=== PATIENT | female | born 1945 | race Caucasian/White ===

== ENCOUNTER 2018-01-18 13:27 | Emergency (ER) | payer MEDICARE, BC, SELFPAY ==
[2018-01-18 13:27] VITALS: BP 159/72; PULSE 84; RESP 16; TEMP 36.5; O2SAT 97; BMI 26.7
--- NOTE | 2018-01-18 13:39 | ED.VISSUMM ---
- ER Visit Summary Date of Service: 01/18/18 Chief Complaint: Right hand and wrist pain History of Present Illness: The patient is a 72 F who has right hand and wrist pain. She slipped on ice and fell yesterday. She landed directly on her right hand. She has pain over the diffuse hand and wrist. Worse with movement. She tried arthritis pills without any relief. No previous injuries or surgeries. Physical Examination: Vital signs reviewed. Right hand exam reveals tenderness diffusely. She has ecchymosis over the lateral part of the right hand. Painful range of motion of the hand and wrist. She has good capillary refill. 2+ radial pulse noted. Test Results: X-rays of the right hand reveal no acute findings. X-rays of the right wrist reveals a distal radius fracture with intra-articular extension Emergency Department Course and Treatment: Patient was placed in an AP splint. She will be given orthopedic follow-up. [place] for home Treatment Plan: [] Disposition: Discharge Impression: Right distal radius fracture, closed This note was generated with [employer] dictation software. It may contain incorrect words, spelling, and punctuation that were not noted in review of the chart prior to signing ED Disposition - Plan for ED Patient: Chief Complaint: Upper Extremity Injury Referrals: Marlene Drummond DO [Primary Care Provider] -
--- NOTE | 2018-01-18 13:55 | RAD_ITS ---
STUDY: X-RAY - RIGHT HAND REASON FOR EXAM: Female, 72 years old. Hand pain after fall TECHNIQUE: 3 view(s) of the hand. COMPARISON: None. FINDINGS: Age-related degenerative changes. No evidence of fracture of the hand. No significant soft tissue swelling. Mild diffuse demineralization. Partially visualized distal radius fracture. RAD/Hand Min 3 Views IMPRESSION: As above Electronically Signed: Cal Buenrostro DO at 15:43 EST Tel , Service support ,
--- NOTE | 2018-01-18 13:55 | RAD_ITS ---
STUDY: X-RAY - RIGHT WRIST REASON FOR EXAM: Female, 72 years old. Right wrist pain after fall TECHNIQUE: 3 view(s) of the wrist were obtained. COMPARISON: None. FINDINGS: Mildly comminuted and nondisplaced fracture of the distal radius with some impaction. Intra-articular extension is noted. Otherwise, mild degenerative changes. Soft tissue swelling is noted. RAD/Wrist min 3 Views IMPRESSION: Distal radius fracture Electronically Signed: Cal Buenrostro DO at 15:42 EST Tel , Service support ,
--- NOTE | 2018-01-18 15:56 | DCINST.ED_ITS ---
ED Disposition - Plan for ED Patient: Disposition: Home or Assisted Living Chief Complaint: Upper Extremity Injury Instructions: ED Fx Wrist General Prescriptions: Hydrocodone Bitart/Apap 5-325 [[place] 5MG-325MG] 1 tab PO Q6H PRN PRN 3 Days #10 tab PRN Reason: Pain Referrals: Marlene Drummond DO [Primary Care Provider] - Kacey Conde DO [STAFF PHYSICIAN] -
[2018-01-18 16:02] VITALS: BP 135/67; PULSE 71; RESP 16; O2SAT 96
== END 2018-01-18 16:02 | disposition home or self-care (01) ==
PROVIDERS: Emergency Provider Emergency Medicine; Family Provider Family Medicine; PCP Family Medicine
DX: S52.571A Other intraarticular fracture of lower end of right radius, initial encounter for closed fracture (principal); W00.0XXA Fall on same level due to ice and snow, initial encounter; Y93.9 Activity, unspecified; Y92.9 Unspecified place or not applicable; G35 Multiple sclerosis; Z79.899 Other long term (current) drug therapy
CPT/HCPCS: 29125; 73110; 73130; 99282

== ENCOUNTER → 2018-01-27 14:02 | Outpatient (CLI) | payer MEDICARE, BC, SELFPAY ==
[2018-01-27 13:54] VITALS: BMI 26.7
--- NOTE | 2018-01-27 14:17 | RAD_ITS ---
STUDY: X-RAY - RIGHT WRIST REASON FOR EXAM: Pain. TECHNIQUE: 3 view(s) of the wrist were obtained. COMPARISON: Radiographs 01/18/2018. FINDINGS: There is a mildly impacted fracture of the distal radius without interval change. Normal radiocarpal articulation. Normal distal radioulnar articulation. Normal carpal bones. Normal carpal articulations. Normal carpometacarpal articulation of the thumb. Normal second through fifth carpometacarpal articulations. Normal visualized metacarpal bones. There is an overlying cast. RAD/Wrist min 3 Views IMPRESSION: No interval change of distal radial fracture. Electronically Signed: Sony Rai MD at 15:50 EST Tel , Service support ,
--- OUTSIDE RECORDS SUMMARY | 2018-05-01 01:37 | XMS RPT_ITS ---
:1945 Author Organization OHIP Care Team Providers Name Role Phone Kacey Conde Attending Unavailable Malys, Marlene Referring Unavailable Kacey Conde Attending Unavailable Kacey Conde Referring Unavailable Malys, Marlene Primary Care Unavailable Kacey Conde Attending Unavailable Modestoys, Marlene Referring Unavailable Kacey Conde Attending Unavailable Kacey Conde Primary Care Unavailable Kacey Conde Attending Unavailable Kacey Conde Attending Unavailable Kacey Conde Referring Unavailable Chicarmand, Kacey Primary Care Unavailable Malys, Marlene Primary Care Unavailable Chino Meraz Attending Unavailable PROBLEMS PROBLEMS DATE TYPE CONDITION / CODE ATTENDING STATUS SOURCE 02/13/2018 Unknown S62.101A - Chicarmand, Active [place] Fracture of [facility] unspecified Hospital carpal bone, Repository right wrist, initial encounter for closed fracture / S62.101A(ICD-10) 02/13/2018 Unknown S52.509A - Chicorelli, Active [place] Unspecified [facility] fracture of the Hospital lower end of Repository unspecified radius, initial encounter for closed fracture / S52.509A(ICD-10) 01/27/2018 Unknown M25.539 - Pain in [place], Active [place] unspecified wrist [facility] / M25.539(ICD-10) Hospital Repository 01/18/2018 Unknown S52.501A - Chino Meraz Active [place] Unspecified [facility] fracture of the Hospital lower end of Repository right radius, initial encounter for closed fracture / S52.501A(ICD-10) PROCEDURES PROCEDURES No Procedure Records FoundRESULTS RESULTS ORTHOPEDIC VISIT Observed: 02/13/2018 Status: F Source: [place] REPORT 11:[address] [facility] REPOSITORY [facility] Orthopaedics AND Sports Medicine [address] [place] [address] OFFICE VISIT Date of Service: 02/13/18 MR#: [id number] Acct: [id number] Name: AUBREY MAN Rep #: [id number] : 1945 Provider: Kacey Conde DO Age/Sex: 72/F Location: [facility] [place].SMO Status: Signed Intake Vital Signs02/13/18 Body Mass Index (BMI) 26.7 Intake Visit Reasons: RIGHT WRIST Is patient in pain?: No Allergies ciprofloxacin [From Cipro] Allergy (Verified 02/13/18 09:19) Other erythromycin base Allergy (Verified 02/13/18 09:19) Other Medications Fluoxetine [Prozac] 01/18/18 [History] Glipizide [Glipizide ER] 01/18/18 [History] Qnapril/Hctz 20 - 25 mg PO DAILY 01/18/18 [History] Solifenacin Succinate [Vesicare] 01/18/18 [History] PFSH Social History Smoking Status: Never smoker HPI RIGHT WRIST: Details: AUBREY MAN is a 72 year old F here today for a followup on her right wrist fracture. Patient states that she is doing well and not having any pain. Her short arm cast is clean, dry and intact. She is able to move her fingers with no pain. Denies numbness, tingling or other associated symptoms. ROS Const Reports system reviewed and no additional complaints, except as docu Eyes Reports system reviewed and no additional complaints, except as docu ENT Reports system reviewed and no additional complaints, except as docu Card Reports system reviewed and no additional complaints, except as docu Resp Reports system reviewed and no additional complaints, except as docu GI Reports system reviewed and no additional complaints, except as docu Reports system reviewed and no additional complaints, except as docu Skin/Breast Reports system reviewed and no additional complaints, except as docu Neuro Yes system reviewed and no additional complaints, except as docu Psych Reports system reviewed and no additional complaints, except as docu Endo Reports system reviewed and no additional complaints, except as docu Ortho Exam Right Wrist/Hand WRIST: No skin breakdown around cast able to range of motion of her fingers with limited pain and no sensory or neurovascular deficits. Assessment AND Plan Plan X-rays reviewed of her wrist show adequate alignment. She did follow-up and again dorsally at the last visit but that has maintained stabilization has not worsened. Maintain cast for another 3 weeks and then remove the cast and get x-rays and at that point if she is not completely healed convert her to a splint that she can remove and work on range of motion exercises. She should also start occupational therapy in 3 weeks to ensure that she does not get super stiff. All questions answered. Patient in agreement of plan. Follow up in 3 weeks with mukund or sooner if pain, swelling, numbness or associated symptoms, or concerns develop. This note was generated with Fiestah dictation software. It may contain incorrect words, spelling, and punctuation that were not noted in checking the note before signing. Orders Orders: Coding Level of Care Code Off vis,est,level 3 02/13/18 1118 <Electronically signed by Kacey Conde DO> Date Kacey Goodmanignmarty Signature: Date (if applicable) CC: WRIST MIN 3 VIEWS Observed: 02/13/2018 Status: F Source: [place] 9:21 AM [facility] REPOSITORY [facility] Imaging Services [address] [place] [address] Wrist min 3 Views MR#: [id number] Acct: [id number] Name: AUBREY MAN Rep #: [id number] : 1945 F 72 From: Teo Alvarez MD PCP: Marlene Drummond DO Status: REG CLI Study: Wrist min 3 Views Date of Exam: 02/13/18 Exam# [id number] Ordering Dr: Kacey Conde DO STUDY: X-RAY - RIGHT WRIST REASON FOR EXAM: Female, 72 years old. Distal radial fracture follow-up TECHNIQUE: 3 view(s) of the wrist were obtained. COMPARISON: 02/05/2018 FINDINGS: Comminuted fracture of the distal radius is stable when compared to prior study. No change in alignment. Ulnar styloid fracture is not well documented on current exam. Normal radiocarpal articulation. Similar mild widening of the distal radioulnar articulation. Normal carpal bones. Normal carpal articulations. There is degenerative arthrosis of the carpometacarpal articulation of the thumb. Normal second through fifth carpometacarpal articulations. Normal visualized metacarpal bones. Cast material obscures the underlying bony detail. RAD/Wrist min 3 Views IMPRESSION: Stable distal radial fracture. Electronically Signed: Teo Alvarez MD at 7:19 EST , Service support , CC: Kacey Conde DO; Marlene Drummond DO Heel Packer: Signed ORTHOPEDIC VISIT Observed: 02/06/2018 Status: F Source: [place] REPORT 9:[address] [facility] REPOSITORY [facility] Medicine [address] [place] [address] OFFICE VISIT Date of Service: 01/27/18 MR#: [id number] Acct: [id number] Name: AUBREY MAN Rep #: [id number] : 1945 Provider: Kacey Conde DO Age/Sex: 72/F Location: [facility] [place].[facility] Status: Signed Intake Vital Signs01/27/18 Body Mass Index (BMI) 26.7 01/27/18 Height 5 ft 1 in 01/27/18 Weight: 137 lb 01/27/18 Body Mass Index (BMI) 25.9 Intake Visit Reasons: RIGHT WRIST Is patient in pain?: Yes Pain Scale - Faces (1-5): 7 Allergies ciprofloxacin [From Cipro] Allergy (Verified 01/18/18 13:29) Other erythromycin base Allergy (Verified 01/18/18 13:29) Other Medications Fluoxetine [Prozac] 01/18/18 [History] Glipizide [Glipizide ER] 01/18/18 [History] Qnapril/Hctz 20 - 25 mg PO DAILY 01/18/18 [History] Solifenacin Succinate [Vesicare] 01/18/18 [History] PFSH Social History Smoking Status: Never smoker HPI RIGHT WRIST: Details: AUBREY MAN is a 72 year old F here today for ED F/u on rt wrist fx. Pt fell on ice on 01/17 on 01/18 pt woke up with increased pain and mentions hand was black and blue , swollen. Pt has not been taking any pain medication has been using shoulder sling from .Pt reports pain in wrist that is radiating up arm. Denies numbness, tingling or other associated symptoms. no head trauma, loc, or other issues today. ROS Const Denies system reviewed and no additional complaints, except as docu, Denies anorexia, Denies body aches, Denies chills, Denies daytime sleepiness, Denies difficulty sleeping, Denies excessive sweating, Denies fatigue, Denies fever(s), Denies frequent falls, Denies headache(s), Denies increased appetite, Denies poor appetite, Denies lack of energy, Denies malaise, Denies night sweats, Denies snoring, Denies stops breathing during sleep, Denies weakness, Denies weight gain, Denies weight loss, Denies other, Reports as per HPI ENT Denies headache(s) Resp Denies snoring Musc Reports joint swelling, Reports joint pain, Reports as per HPI, Reports radiating pain into limb Neuro No frequent falls, No headache(s), No weakness Endo Denies excessive sweating, Denies fatigue Ortho Exam Right Wrist/Hand Contralateral Normal: Yes Motor: EPL: 5, FDP-2: 5, 1st Dorsal Interosseous: 5, APB: 5 Sensation: Radial: I, Ulnar: I, Median: I WRIST: ttp at fracture site from fingers with pain Left Wrist/Hand Left Wrist: Yes TTP Fracture site Motor: EPL: 5, FDP-2: 5, 1st Dorsal Interosseous: 5, APB: 5 Sensation: Radial: I, Ulnar: I, Median: I Assessment AND Plan Problems 1. Distal radius fracture S52.509A Plan Patient has a partially displaced right distal radius fracture. Today we closed reduced and casted her and put a short arm cast repeat x-rays show better alignment. This point we will treat her conservatively as patient is not interested in any type of surgical intervention. We will watch her closely to discuss the fact that it may shorten or she may lose range of motion etc. family and patient is aware cast for 6 weeks repeat x- rays for the next 2 and most likely transition into a splint of some sort. She is neuro intact she is tender to site but having no other symptoms and no carpal tunnel symptoms. All questions answered. Patient in agreement of plan.Follow up in 1 week with repeat xrays or sooner if pain, swelling, numbness or associated symptoms, or concerns develop. Medications Discontinued: hydrocodone-acetaminophen 5-325 mg take 1 1 tab PO Q6H 5 days PRN 30 tabs 0RF pain R52 tab by mouth every 6 hours as needed for pain , stop all tylenol and narcs Discontinued Reason: By Stop Date Coding Level of Care Code Off vis,new,level 3 Diagnoses Distal radius fracture S52.509A 02/06/18 0905 <Electronically signed by Kacey Conde DO> Date Kacey Conde DO Alonign Signature: Date (if applicable) CC: ORTHOPEDIC VISIT Observed: 02/05/2018 Status: F Source: [place] REPORT 1:[address] [facility] REPOSITORY [facility] [address] [place] [address] OFFICE VISIT Date of Service: 02/05/18 MR#: [id number] Acct: [id number] Name: AUBREY MAN Rep #: [id number] : 1945 Provider: Kacey Conde DO Age/Sex: 72/F Location: [facility] [place] [place]: Signed Intake Vital Signs02/05/18 Body Mass Index (BMI) 26.7 Intake Visit Reasons: RIGHT WRIST Is patient in pain?: Yes Pain scale (1-10): 5 Allergies ciprofloxacin [From Cipro] Allergy (Verified 01/18/18 13:29) Other erythromycin base Allergy (Verified 01/18/18 13:29) Other Medications Fluoxetine [Prozac] 01/18/18 [History] Glipizide [Glipizide ER] 01/18/18 [History] Qnapril/Hctz 20 - 25 mg PO DAILY 01/18/18 [History] Solifenacin Succinate [Vesicare] 01/18/18 [History] PFSH Social History Smoking Status: Never smoker HPI RIGHT WRIST: Details: AUBREY MAN is a 72 year old F here today for f/u on right wrist fracture. Her cast is in clean dry good condition with no skin irritations. She has discomfort with finger rom and sup/pro and she continues to use the pain medication. She swelling is improved in her fingers. Denies numbness, tingling or other associated symptoms. Ortho Exam Right Wrist/Hand Motor: EPL: 5, FDP-2: 5, 1st Dorsal Interosseous: 5, APB: 5 Sensation: Radial: I, Ulnar: I, Median: I WRIST: No skin breakdown around cast Assessment AND Plan Plan X-rays of right wrist show adequate alignment no major shortening or dorsal angulation at this time. We will continue to monitor her weekly to ensure that she feels this is a good short and does not need any intervention. We will get repeat x-rays in 1 week. Again told to remain nonweightbearing right upper extremity call if there is any issues continue to keep cast clean and dry there is any skin irritation we can address that but there appears to be none at this time. All questions answered. Patient in agreement of plan.Follow up in one week or sooner if pain, swelling, numbness or associated symptoms, or concerns develop. Orders Orders: Coding Level of Care Code Off vis,est,level 3 02/05/18 1346 <Electronically signed by Kacey Conde DO> Date Kacey Conde DO Cosigner Signature: Date (if applicable) CC: WRIST MIN 3 VIEWS Observed: 02/05/2018 Status: F Source: [place] 12:[address] [facility] REPOSITORY [facility] Imaging Services [address] [place] [address] Wrist min 3 Views MR#: [id number] Acct: [id number] Name: AUBREY MAN Rep #: [id number] : 1945 F 72 From: Jose Messina MD PCP: Marlene Drummond DO Status: REG CLI Study: Wrist min 3 Views Date of Exam: 02/05/18 Exam# [id number] Ordering Dr: Kacey Conde DO STUDY: X-RAY - RIGHT WRIST REASON FOR EXAM: Female, 72 years old. Follow-up of fracture. TECHNIQUE: 3 view(s) of the wrist through casting material were obtained. COMPARISON: January 27, 2018 FINDINGS: There is a comminuted impacted distal radial fracture showing no change in position or alignment. There is a stable ulnar styloid tip fracture. Normal radiocarpal articulation. Normal distal radioulnar articulation. Normal carpal bones. 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 There is cystic changes of the carpal bones. The soft tissue structures are unremarkable. RAD/Wrist min 3 Views IMPRESSION: Stable distal radial and ulnar styloid tip fractures with no complications. Electronically Signed: Jose Messina MD at 17:16 EST , Service support , CC: Kacey Conde DO; Marlene Drummond DO Heel Packer: Signed WRIST MIN 3 VIEWS Observed: 01/27/2018 Status: F Source: [place] 2:[address] [facility] REPOSITORY [facility] Imaging Services [address] [place] [address] Wrist min 3 Views MR#: [id number] Acct: [id number] Name: AUBREY MAN Rep #: [id number] : 1945 F 72 From: Sony Rai MD PCP: Marlene Drummond DO Status: REG CLI Study: Wrist min 3 Views Date of Exam: 01/27/18 Exam# [id number] Ordering Dr: Kacey Conde DO STUDY: X-RAY - RIGHT WRIST REASON FOR EXAM: Pain. TECHNIQUE: 3 view(s) of the wrist were obtained. COMPARISON: Radiographs 01/18/2018. FINDINGS: There is a mildly impacted fracture of the distal radius without interval change. Normal radiocarpal articulation. Normal distal radioulnar articulation. Normal carpal bones. Normal carpal articulations. Normal carpometacarpal articulation of the thumb. Normal second through fifth carpometacarpal articulations. Normal visualized metacarpal bones. There is an overlying cast. RAD/Wrist min 3 Views IMPRESSION: No interval change of distal radial fracture. Electronically Signed: Sony Rai MD at 15:50 EST Tel , Service support , CC: Kacey Conde DO; Marlene Drummond DO Heel Packer: Signed EMERGENCY DEPARTMENT Observed: 01/23/2018 Status: F Source: [place] SUMMARY 11:[address] [facility] REPOSITORY [facility] Medical Records Department [address] [place] [address] Emergency Department Summary 01/18/18 1339 MR#: [id number] Acct: [id number] Name: AUBREY MAN Rep #: [id number] : 1945 72 From: Chino Meraz MD PCP: Marlene Drummond DO Status: DEP ER ADDENDUM by Chino Meraz MD on 01/23/18 at 1147 AP splint was fabricated 01/23/18 1147 Date Chino Meraz MD cc: Marlene Drummond DO * Signed - ER Visit Summary Date of Service: 01/18/18 Chief Complaint: Right hand and wrist pain History of Present Illness: The patient is a 72 F who has right hand and wrist pain. She slipped on ice and fell yesterday. She landed directly on her right hand. She has pain over the diffuse hand and wrist. Worse with movement. She tried arthritis pills without any relief. No previous injuries or surgeries. Physical Examination: Vital signs reviewed. Right hand exam reveals tenderness diffusely. She has ecchymosis over the lateral part of the right hand. Painful range of motion of the hand and wrist. She has good capillary refill. 2+ radial pulse noted. Test Results: X-rays of the right hand reveal no acute findings. X-rays of the right wrist reveals a distal radius fracture with intra-articular extension Emergency Department Course and Treatment: Patient was placed in an AP splint. She will be given orthopedic follow-up. [place] for home Treatment Plan: [] Disposition: Discharge Impression: Right distal radius fracture, closed This note was generated with MarketMeSuiteation software. It may contain incorrect words, spelling, and punctuation that were not noted in review of the chart prior to signing ED Disposition - Plan for ED Patient: Chief Complaint: Upper Extremity Injury Referrals: Marlene Drummond DO [Primary Care Provider] - What to do if you have Problems For any increased pain, shortness of breath, bleeding, nausea or vomiting, chest pain, or any unexpected problems, contact your Primary Care Provider. Call [facility] ([phone]) or report to the closest Emergency Room. Call 911 if necessary. 01/18/18 1555 <Electronically signed by Chino Meraz MD> Date Chino Merza MD Cosigner Signature (If Indicated): Date CC: Marlene Drummond DO DISCHARGE INSTRUCTION Observed: 01/18/2018 Status: F Source: [place] 3:[address] [facility] REPOSITORY [facility] Medical Records Department [address] [place] [address] Discharge Instruction 01/18/18 1555 MR#: [id number] Acct: [id number] Name: AUBREY MAN Rep #: [id number] : 1945 72 From: Chino Meraz MD PCP: Marlene Drummond DO Status: REG ER ED Disposition - Plan for ED Patient: Disposition: Home or Assisted Living Chief Complaint: Upper Extremity Injury Instructions: ED Fx Wrist General Prescriptions: Hydrocodone Bitart/Apap 5-325 [[place] 5MG-325MG] 1 tab PO Q6H PRN PRN 3 Days #10 tab PRN Reason: Pain Referrals: Marlene Drummond DO [Primary Care Provider] - Kacey Conde DO [STAFF PHYSICIAN] - What to do if you have Problems For any increased pain, shortness of breath, bleeding, nausea or vomiting, chest pain, or any unexpected problems, contact your Primary Care Provider. Call [facility] ([phone]) or report to the closest Emergency Room. Call 911 if necessary. 01/18/18 3807 <Electronically signed by Chino Meraz MD> Date Chino Meraz MD Cosigner Signature (If Indicated): Date CC: Marlene Drummond DO WRIST MIN 3 VIEWS Observed: 01/18/2018 Status: F Source: [place] 1:[address] [facility] REPOSITORY [facility] Imaging Services [address] [place] [address] Wrist min 3 Views MR#: [id number] Acct: [id number] Name: AUBREY MAN Rep #: [id number] : 1945 F 72 From: Cal Buenrostro DO PCP: Marlene Drummond DO Status: REG ER Study: Wrist min 3 Views Date of Exam: 01/18/18 Exam# [id number] Ordering Dr: Chino Meraz MD STUDY: X-RAY - RIGHT WRIST REASON FOR EXAM: Female, 72 years old. Right wrist pain after fall TECHNIQUE: 3 view(s) of the wrist were obtained. COMPARISON: None. FINDINGS: Mildly comminuted and nondisplaced fracture of the distal radius with some impaction. Intra-articular extension is noted. Otherwise, mild degenerative changes. Soft tissue swelling is noted. RAD/Wrist min 3 Views IMPRESSION: Distal radius fracture Electronically Signed: Cal Buenrostro DO at 15:42 EST Tel , Service support , CC: Chino Meraz MD; Marlene Drummond DO Heel Packer: Signed HAND MIN 3 VIEWS Observed: 01/18/2018 Status: F Source: [place] 1:[address] [facility] REPOSITORY [facility] Imaging Services [address] [place] [address] Hand Min 3 Views MR#: [id number] Acct: [id number] Name: AUBREY MAN Rep #: [id number] : 1945 F 72 From: Cal Buenrostro DO PCP: Marlene Drummond DO Status: REG ER Study: Hand Min 3 Views Date of Exam: 01/18/18 Exam# [id number] Ordering Dr: Chino Meraz MD STUDY: X-RAY - RIGHT HAND REASON FOR EXAM: Female, 72 years old. Hand pain after fall TECHNIQUE: 3 view(s) of the hand. COMPARISON: None. FINDINGS: Age-related degenerative changes. No evidence of fracture of the hand. No significant soft tissue swelling. Mild diffuse demineralization. Partially visualized distal radius fracture. RAD/Hand Min 3 Views IMPRESSION: As above Electronically Signed: Cal Buenrostro DO at 15:43 EST Tel , Service support , CC: Chino Meraz MD; Marlene Drummond DO Heel Packer: Signed ALLERGIES ALLERGIES DATE TYPE / CODE NAME / CODE REACTION SEVERITY SOURCE 02/13/2018 Drug erythromycin Other Unknown [place] Allergy/416 base/[id number](RXN Community 490603([facility] ED CT) Repository 02/13/2018 Drug ciprofloxacin/F0060 Other Unknown [place] Allergy/416 69578(RXNORM) Community 247673([facility] ED CT) Repository ENCOUNTERS ENCOUNTERS ADMIT/DISCHARGE ACCOUNT ADMITTING ENCOUNTER LOCATION SOURCE NUMBER CLASS 02/13/2018 [id number] Ambulatory [place] 2 [facility] ing:HPRAD Repository 02/13/2018/ [id number] Ambulatory BMSBuilding:B [place] 9 9 [facility] Repository 02/05/2018 [id number] Ambulatory [place] 3 [facility] ing:HPRAD Repository 02/05/2018/ [id number] Ambulatory BMSBuilding:B [place] 8 7 [facility] Repository 01/27/2018 [id number] Ambulatory [place] 8 [facility] ing:HPRAD Repository 01/27/2018/ [id number] Ambulatory BMSBuilding:B [place] 8 6 [facility] Repository 01/18/2018/ [id number] Emergency [place] 8 5 [facility] ing:ED Repository PAYERS PAYERS ENCOUNTER GUARANTOR PAYER SUBSCRIBER SOURCE 02/13/2018 AUBREY Gilbert Primary AUBREY E [place] [id number] Insurance:MEDICARE WETZDOB: Critical access hospital PART A [facility] [id number] [address] Number: Repository [address]Xgf: [phone] [id number] () Date:2018-02-13 02/13/2018 Secondary WILI D WETZDOB: [place] Insurance:ANTHEMPolic [id number] [facility] Number: [facility] [id number] Repository Date:[id number] [id number] [place] [address]GL: 02/13/2018 Tertiary NOT GIVENUNK [place] Insurance:SELF PAY [facility] Number: Effective Repository Date:2018-02-13 02/13/2018 AUBREY Gilbert Primary AUBREY E [place] [id number] Insurance:MEDICARE WETZDOB: Critical access hospital A [facility] [id number] [address] Number: Repository [id number]: 330 [id number] () Date:2018-02-05 02/13/2018 Secondary WILI D WETZDOB: [place] Insurance:ANTHEMPolic [id number] [facility] y Number: Hospital [id number] Repository Date:4090-28-52CS [address] [place] [address]CT: 02/13/2018 Tertiary NOT GIVENUNK [place] Insurance:SELF PAY [facility] Number: Effective Repository Date:2018-02-13 02/05/2018 AUBREY E Primary AUBREY E [place] [id number] Insurance:MEDICARE WETZDOB: [facility] [id number] Number: Repository [id number]: 330 [id number] () Date:2018-02-05 02/05/2018 Secondary WILI D WETZDOB: [place] Insurance:ANTHEMPolic [id number] Community y Number: Hospital [id number] Repository Date:0619-73-80EF [address], [place] [address]UM: 02/05/2018 Tertiary NOT GIVENUNK [place] Insurance:SELF PAY [facility] Number: Effective Repository Date:2018-02-05 02/05/2018 AUBREY E Primary AUBREY E [place] [id number] Insurance:MEDICARE WETZDOB: Critical access hospital PART A [facility] [id number] [address] Number: Repository [address]Ope: 330 [id number] () Date:2018-01-27 02/05/2018 Secondary WILI D WETZDOB: [place] Insurance:ANTHEMPolic [id number] Community y Number: Hospital [id number] Repository Date:2012-18-66ZK [id number] [place] [address]SJ: 02/05/2018 Tertiary NOT GIVENUNK Lloyd Insurance:SELF PAY [facility] Number: Effective Repository Date:2018-02-04 01/27/2018 AUBREY E Primary AUBREY E [place] [id number] Insurance:MEDICARE WETZDOB: Critical access hospital PART A [facility] [id number] Number: Repository [id number]: [phone] [id number] () Date:2018-01-27 01/27/2018 Secondary WILI D WETZDOB: [place] Insurance:ANTHEMPolic [id number] Formerly [facility] y Number: [facility] [id number] Repository Date:[id number] [address], [place] [address]WS: 01/27/2018 Tertiary NOT GIVENUNK Lloyd Insurance:SELF PAY [facility] Number: Effective Repository Date:2018-01-27 01/27/2018 AUBREY E Primary AUBREY E [place] [id number] Insurance:MEDICARE WETZDOB: Critical access hospital A [facility] [id number] Number: Repository [id number]: [phone] [id number] 3 () Date:2018-01-19 01/27/2018 Secondary WILI D WETZDOB: [place] Insurance:ANTHEMPolic [id number] Formerly [facility] y Number: [facility] [id number] Repository Date:[id number], [place] [address]BK: 01/27/2018 Tertiary NOT GIVENUNK Lloyd Insurance:SELF PAY [facility] Number: Effective Repository Date:2018-01-26 01/18/2018 AUBREY E Primary AUBREY E Lloyd [id number] Insurance:MEDICARE WETZDOB: Critical access hospital PART A [facility] [id number] Number: Repository [id number]: [phone] [id number] (HP) Date:2018-01-18 01/18/2018 Secondary WILI ARAYA: [place] Insurance:ANTHEMPolic [id number] Formerly [facility] y Number: [facility] [id number] Repository Date:[id number] [place] [id number], [place] [address]TF: 01/18/2018 Tertiary NOT GIVENUNK Lloyd Insurance:SELF PAY [facility]: Effective Repository Date:2018-01-18
== END ==
PROVIDERS: Family Provider Family Medicine; PCP Family Medicine; Referring Provider Orthopaedic Surgery; Visit Provider Orthopaedic Surgery
DX: M25.531 Pain in right wrist (principal)
CPT/HCPCS: 73110

== ENCOUNTER → 2018-02-05 12:40 | Outpatient (CLI) | payer MEDICARE, BC, SELFPAY ==
[2018-01-27 13:54] VITALS: BMI 26.7
--- NOTE | 2018-02-05 12:48 | RAD_ITS ---
STUDY: X-RAY - RIGHT WRIST REASON FOR EXAM: Female, 72 years old. Follow-up of fracture. TECHNIQUE: 3 view(s) of the wrist through casting material were obtained. COMPARISON: January 27, 2018 FINDINGS: There is a comminuted impacted distal radial fracture showing no change in position or alignment. There is a stable ulnar styloid tip fracture. Normal radiocarpal articulation. Normal distal radioulnar articulation. Normal carpal bones. 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 There is cystic changes of the carpal bones. The soft tissue structures are unremarkable. RAD/Wrist min 3 Views IMPRESSION: Stable distal radial and ulnar styloid tip fractures with no complications. Electronically Signed: Jose Messina MD at 17:16 EST , Service support ,
== END ==
PROVIDERS: Family Provider Orthopaedic Surgery; PCP Family Medicine; Visit Provider Orthopaedic Surgery
DX: S62.101A Fracture of unspecified carpal bone, right wrist, initial encounter for closed fracture (principal)
CPT/HCPCS: 73110

== ENCOUNTER → 2018-02-13 09:19 | Outpatient (CLI) | payer MEDICARE, BC, SELFPAY ==
[2018-02-13 09:19] VITALS: BMI 26.7
--- NOTE | 2018-02-13 09:21 | RAD_ITS ---
STUDY: X-RAY - RIGHT WRIST REASON FOR EXAM: Female, 72 years old. Distal radial fracture follow-up TECHNIQUE: 3 view(s) of the wrist were obtained. COMPARISON: 02/05/2018 FINDINGS: Comminuted fracture of the distal radius is stable when compared to prior study. No change in alignment. Ulnar styloid fracture is not well documented on current exam. Normal radiocarpal articulation. Similar mild widening of the distal radioulnar articulation. Normal carpal bones. Normal carpal articulations. There is degenerative arthrosis of the carpometacarpal articulation of the thumb. Normal second through fifth carpometacarpal articulations. Normal visualized metacarpal bones. Cast material obscures the underlying bony detail. RAD/Wrist min 3 Views IMPRESSION: Stable distal radial fracture. Electronically Signed: Teo Alvarez MD at 7:19 EST , Service support ,
== END ==
PROVIDERS: Family Provider Orthopaedic Surgery; PCP Family Medicine; Referring Provider Orthopaedic Surgery; Visit Provider Orthopaedic Surgery
DX: S52.501A Unspecified fracture of the lower end of right radius, initial encounter for closed fracture (principal)
CPT/HCPCS: 73110

== ENCOUNTER → 2018-03-05 09:23 | Outpatient (CLI) | payer MEDICARE, BC, SELFPAY ==
[2018-02-13 09:19] VITALS: BMI 26.7
--- NOTE | 2018-03-05 09:27 | RAD_ITS ---
STUDY: X-RAY - RIGHT WRIST REASON FOR EXAM: Female, 72 years old. Fracture, cast removed today TECHNIQUE: 3 view(s) of the wrist were obtained. COMPARISON: None. FINDINGS: Stable configuration of distal radius fracture. Carpal rows are normally aligned. Scaphotrapezial and first carpometacarpal osteoarthritis. Soft tissue swelling. RAD/Wrist min 3 Views IMPRESSION: Stable configuration of distal radius fracture. Electronically Signed: Nathan Gamez MD at 23:40 EST Tel , Service support ,
== END ==
PROVIDERS: Family Provider Orthopaedic Surgery; PCP Family Medicine; Referring Provider Physician Assistant; Visit Provider Physician Assistant
DX: S62.101A Fracture of unspecified carpal bone, right wrist, initial encounter for closed fracture (principal)
CPT/HCPCS: 73110

== ENCOUNTER → 2018-03-12 14:32 | Outpatient (CLI) | payer MEDICARE, BC, SELFPAY ==
[2018-02-13 09:19] VITALS: BMI 26.7
== END ==
PROVIDERS: Family Provider Family Medicine; PCP Family Medicine; Visit Provider Family Medicine
DX: R30.0 Dysuria (principal); R41.0 Disorientation, unspecified
CPT/HCPCS: 87086; 87088; 87186

== ENCOUNTER → 2018-05-27 10:36 | Outpatient (CLI) | payer MEDICARE, BC, SELFPAY ==
[2018-02-13 09:19] VITALS: BMI 26.7
--- NOTE | 2018-05-27 10:42 | MRI_ITS ---
STUDY: MRI BRAIN WITHOUT CONTRAST REASON FOR EXAM: Female, 72 years old. Memory loss, multiple sclerosis TECHNIQUE: Standardized multiplanar fat and water weighted pulse sequences were obtained. COMPARISON: None. FINDINGS: There is moderate cerebral atrophy with widening of the extra-axial spaces and ventricular dilatation. There are moderate bilateral periventricular T2 and STIR hyperintense foci in keeping with known demyelinating disease. Normal bilateral basal ganglia. Normal thalami. There is no extra-axial fluid accumulation. Normal flow voids within the major intracranial circulation suggesting patency by spin echo criteria. Normal sella turcica, pituitary gland, infundibular stalk, optic chiasm and hypothalamus. Normal tectal plate and pineal gland. Normal midbrain, reyes and medulla. Normal cerebellum. Normal basal cisterns. Normal bilateral temporal bones. Normal bilateral internal auditory canals. No demonstrated orbital abnormality, within the constraints of a routine brain study. Normal visualized paranasal sinuses. Normal calvarium and skull base. Normal visualized soft tissue structures. Normal visualized upper cervical spine. MRI/Brain without Contrast IMPRESSION: Involutional changes of the brain, as described above. Findings consistent with known demyelinating disease. No acute infarct or intracranial hemorrhage. Electronically Signed: Dwight Cash, at 17:09 EDT Tel , Service support ,
== END ==
PROVIDERS: Family Provider Family Medicine; PCP Family Medicine; Referring Provider Family Medicine; Visit Provider Family Medicine
DX: G35 Multiple sclerosis (principal); R41.3 Other amnesia
CPT/HCPCS: 70551

== ENCOUNTER → 2018-09-09 | Outpatient (CLI) | payer MEDICARE, BC, SELFPAY ==
[2018-02-13 09:19] VITALS: BMI 26.7
== END | disposition home or self-care (01) ==
LOC: LABSPEC 11:56
PROVIDERS: Family Provider Family Medicine; PCP Family Medicine; Referring Provider Urology; Visit Provider Urology
DX: N39.0 Urinary tract infection, site not specified (principal)
CPT/HCPCS: 87086

== ENCOUNTER → 2018-10-30 09:36 | Outpatient (CLI) | payer MEDICARE, OTHER, SELFPAY ==
[2018-02-13 09:19] VITALS: BMI 26.7
[2018-10-30 13:42] LABS: Hemoglobin A1c 5.7 % (4.2-6.3)
[2018-10-30 13:57] LABS: ALB/GLOB Ratio 0.9 RATIO (0.9-2.4); AST(SGOT) 19 U/L (15-37); Alanine Aminotransfer ALT/SGPT 21 U/L (13-56); Albumin, Serum 3.7 g/dL (3.2-5.0); Alkaline Phosphatase 179 U/L (45-117); Anion Gap 6 (5-15); BUN 17 mg/dL (7-18); BUN/Creat Ratio 27.2 RATIO (10-20); Calcium,Total 9.9 mg/dL (8.5-10.1); Chloride 107 mmol/L (98-107); Cholesterol 194 mg/dL (200); Creatinine, Serum 0.62 mg/dL (0.55-1.02); EST Glomerular Filtration Rate 100 mL/min (>60); Est Glom Filt Rate - Afr Amer 121 mL/min (>60); Globulin 4.2 g/dL (2.2-4.2); Glucose 96 mg/dL (74-106); High Density Lipoprotein 54 mg/dL; Potassium 3.7 mmol/L (3.5-5.1); Protein, Total 7.9 g/dL (6.4-8.2); Sodium Level 139 mmol/L (136-145); Triglycerides 86 mg/dL; Very Low Density Lipoprotein 17 mg/dL (5-40)
== END ==
PROVIDERS: Family Provider Family Medicine; PCP Family Medicine; Referring Provider Family Medicine; Visit Provider Family Medicine
DX: E11.9 Type 2 diabetes mellitus without complications (principal)
CPT/HCPCS: 36415; 80053; 80061; 83036

== ENCOUNTER → 2020-02-17 13:31 | Outpatient (CLI) | payer MEDICARE, OTHER, SELFPAY ==
[2018-02-13 09:19] VITALS: BMI 26.7
--- NOTE | 2020-02-17 13:35 | BI_ITS ---
MAMMOGRAPHY - BILATERAL SCREENING REASON FOR EXAM: Female, 74 years old. Routine annual screening examination. PERTINENT HISTORY: Non-contributory. History of bilateral stereotactic breast biopsy. TECHNIQUE: Digital bilateral breast nato (3D mammographic acquisition) in the CC and MLO projections. 2-D mediolateral oblique (MLO) and craniocaudad (CC) views of both breasts were obtained. CAD: Full Field Digital Mammography with Computer Added Detection was performed. COMPARISON: Comparison is made with prior study dated 08/02/2017 and 12/18/2015. FINDINGS: Breast Composition: The breasts are heterogeneously dense, which may obscure small masses. There are no dominant masses or suspicious calcifications. Stable benign-appearing bilateral axillary. A tissue clip marker is seen in the axillary region of the left breast. 2 tissue markers are also seen in the upper midportion of the right breast. Stable benign-appearing bilateral axillary nodes. No other significant abnormalities are identified. There has been no significant change since the prior study. BI/SCREEN MAMM (CAD) W/NATO BILAT IMPRESSION: Stable bilateral screening mammogram. Yearly follow-up mammogram recommended. (A) ASSESSMENT CATEGORY: BIRADS Category 2: Benign. A letter regarding these results will be sent to the patient by the facility within 30 days. Approximately 10% of breast cancers are not detected by mammography. A normal mammogram should not delay biopsy of a clinically suspicious abnormality. [id number] Electronically Signed: Ramana Hayes, at 14:51 EST , Service support ,
== END ==
PROVIDERS: PCP Family Medicine; Visit Provider Family Medicine
DX: Z12.31 Encounter for screening mammogram for malignant neoplasm of breast (principal)
CPT/HCPCS: 77063; 77067

== ENCOUNTER 2020-06-23 05:31 | Day surgery (SDC) | payer MEDICARE, OTHER, SELFPAY ==
[2018-02-13 09:19] VITALS: BMI 26.7
[2020-06-23] VITALS (8 sets, daily range): BP systolic 169–192; BP diastolic 62–81; PULSE 58–79; RESP 16; TEMP 36.5–36.8; O2SAT 100; BMI 21.2
[2020-06-23] MEDS: Lactated Ringers 1,000 ML 100 ML IV (06:22)
--- NOTE | 2020-06-23 07:00 | RAD_ITS ---
STUDY: X-RAY - PELVIS REASON FOR EXAM: Female, 74 years old. INTERSTIM THERAPY 1 TECHNIQUE: 2 views of the pelvis was obtained. COMPARISON: None. FINDINGS: The electrode of the InterStim apparatus is in the upper posterior left side of the pelvis. RAD/Pelvis 1 or 2 Views IMPRESSION: The tip of the electrode is in the upper posterior left side of the pelvis. Electronically Signed: Ramana Hayes MD at 11:05 EDT , Service support ,
[2020-06-23] MEDS: Cefazolin 2 GM in 0.9% Normal Saline 100 ML IV (07:28)
[2020-06-23] MEDS: Lidocaine 1% (30 ml sdv) 30 ML Vial (07:42)
--- NOTE | 2020-06-23 08:21 | PCM.HP.STD ---
HPI - General HPI Narrative Fredy MAN, is a 74 F who presents for stage I InterStim therapy she has a history of overactive bladder and urge incontinence with worsening control she is failed medical therapy and she also tried Botox in the past. We will do procedure for stage I InterStim therapy. [facility] Medical History (Updated 06/23/20 @ 07:[address] Justino Moore MD) Anemia Back pain Bladder incontinence Bowel incontinence Depression Forgetfulness History of wrist fracture Hypertension Loose, teeth Non-smoker Post-menopausal Shortness of breath on exertion Wears glasses Home Medications Avonex 30 mcg IM FR 06/16/20 [History Last Taken Unknown] aspirin 325 mg PO Q6H PRN 06/16/20 [History Last Taken Unknown] ergocalciferol (vitamin D2) [Vitamin D2] 1,250 mcg PO FR 06/16/20 [History Last Taken Unknown] cephalexin [Keflex] 750 mg PO BID #10 cap 06/23/20 [Rx Last Taken Unknown] oxycodone-acetaminophen [Percocet] 1 tab PO Q6H PRN 7 Days #10 tab 06/23/20 [Rx Last Taken Unknown] Allergy/AdvReac Type Severity Reaction Status Date / Time ciprofloxacin [From Cipro] Allergy Other Verified 06/16/20 09:22 erythromycin base Allergy Other Verified 06/16/20 09:22 shellfish derived AdvReac Nausea/Vom/ Verified 06/16/20 09:22 Diarrhea Surgical History Hx of colonoscopy Hx of foot surgery Social History (Updated 03/05/18 @ 12:54 by TAMMY Alvarez) Smoking Status: Never smoker Vital Signs Vital Signs Vital Signs: 06/23/20 06:14 Temperature 98 F Temperature Source Temporal Pulse Rate 72 Respiratory Rate 16 Respiratory Pattern Normal Blood Pressure 174/64 H Blood Pressure Mean 100 Blood Pressure Source Monitor Blood Pressure Position Semi-Fowlers Blood Pressure Location Left Arm Pulse Ox 100 Oxygen Delivery Method Room Air Physical Exam Const alert and oriented x3 General Appearance: cooperative HEENT normocephalic, head/scalp atraumatic, EAC's normal and TM's normal bilaterally Eyes PERRL and EOMs intact bilaterally Pupil: sluggish Neck no lymphadenopathy, supple and no JVD General: trachea midline Lymph Lymphatic: no lymphadenopathy noted, lymphedema and lymphadenopathy Resp normal respiratory effort, normal air movement and clear to auscultation bilaterally Cardio regular rate, regular rhythm and peripheral pulses 2+ throughout GI soft to palpation, non-tender and non-distended Extremity normal capillary refill and no clubbing, cyanosis or edema General Extremity: no tenderness to palpation of joints or extremities Skin no rashes or lesions noted General Skin Exam: turgor normal Lesions: no lesions Rashes: no rashes Neuro CN's II-XII intact bilaterally Speech: speech normal Motor Exam: strength 5/5 throughout; Negative for general weakness Psych thought process normal, cooperative and affect normal Appearance: appropriate Assessment & Plan Assessment/Plan (1) Bladder incontinence: PLAN: Plan to proceed with stage I InterStim therapy.
--- NOTE | 2020-06-23 08:28 | PCM.DC ---
Discharge Instructions Diet Discharge Diet: No restrictions Activity Discharge Activity: May not drive while taking narcotic pain medications. (for 3 days.) May shower in (days): 1 Dressing / Incision Call your doctor if your incision/area has: Continuous Slow Oozing, Increased Pain/ Swelling, Increased Redness and Foul Smelling Discharge Call your doctor if you observe: Fever of 101 or Higher, Numbness or Tingling, Shortness of breath, Dizziness, Calf discomfort and Uncontrolled pain Cleanse incision/area with: Keep Dressing Clean & Dry Follow Up Care Please Follow Up With: Justino Moore MD When: Call [phone] for an appointment Test Results: Test results from this visit will be discussed in further detail at your follow-up appointment, if applicable. Discharge Plan Admission Primary Reason for Your Visit: stage I interstim therapy Attending Provider: Justino Moore Primary Care Provider: Arturo Erickson Discharge Orders/Prescriptions Prescriptions: New cephalexin [Keflex] 750 mg capsule 750 mg PO BID Qty: 10 RF: 0 ibuprofen 600 mg tablet 600 mg PO Q8H PRN (Reason: pain) Qty: 20 RF: 0 Continued aspirin 325 mg Tablet 325 mg PO Q6H PRN (Reason: Pain) RF: 0 ergocalciferol (vitamin D2) [Vitamin D2] 1,250 mcg (50,000 unit) Capsule 1,250 mcg PO FR RF: 0 Avonex 30 mcg/0.5 mL Pen Injector Kit 30 mcg IM FR RF: 0 Referrals / Follow Up: Justino Moore MD [STAFF PHYSICIAN] - Arturo Erickson MD [Primary Care Provider] - Disposition Discharge Orders: Discharge Patient (Routine); Ordered 06/23/20 Ordered By: Dr. Justino Moore
--- NOTE | 2020-06-23 08:28 | PCM.OPRPT ---
Problems Associated Problem List Diagnoses (1) Bladder incontinence: Report of Operation Date of Procedure: 06/23/20 Pre-Operative Diagnosis: urge incontinence Post-Operative Diagnosis: same Surgery/Procedure Performed:: stage I Interstim therapy Description of Surgical Findings:: 74-year-old female was taken back to the operating room for stage I InterStim therapy trial, she was placed facedown on the table, the lower sacral area was prepped and draped in usual sterile fashion. Came in with C arm to identify the landmarks place the needle stylette sideways to identify the the spinous processes of the sacrum we we then went 2 cm north of this, then on the patient's right side I went in with the first needle we then put the fluoroscopy arm lateral to identify that it appeared to gone through the S2 foramen pulled this back out went further down and medial and then advance the needle and and appeared to drip the needle dropped into the S3 foramen and the sacrum. We then tested the needle we had good toe flex toe and also belinda response. The stylette needle was then placed through the trocar needle and then this was removed we made an incision in the skin we then advanced the percutaneous trocar so that the marker on the trocar was right above the posterior plate and then advance the electrode through the trocar we then pulled back the electrode to just so that all three leads were exposed with one lead above and three leads below the second posterior plate of the sacrum. Stimulated zero, one, two, three and had good response on all three. We then pulled back on the sheath exposing the tines and applying the electrode the electrode to needle was then tunneled to the pocket and then extension tunnel was made to next for the external temporary device we connected the lead to the adapter on the extension clean both ends placement together tightened with a screw for three clicks and then we put a knot in the lead to perform prevent migration. And that this point of the pocket was closed with two layers and then we closed the incision site over the sacrum and then also closed the exit point of the temporary extension. She was taken back to PACU good condition should undergo stimulation trial and depending on the trial results we the proceed with stage I or remove the lead if not successful but we had good placement of the lead with good response both belinda and toe response. Surgeon: Justino Moore Type of Anesthesia: MAC and Topical Anesth Admit VTE Documentation VTE Present on Admission: No VTE Mechan Device Prophylaxis: SCD's
== END 2020-06-23 10:12 | disposition home or self-care (01) ==
LOC: SDC 05:32 → AC 05:33
PROVIDERS: PCP Family Medicine; Referring Provider Urology; Visit Provider Urology
PROC: (CPT 64581; principal; 2020-06-23 07:20)
DX: Z45.49 Encounter for adjustment and management of other implanted nervous system device (principal); N39.41 Urge incontinence; N32.81 Overactive bladder
CPT/HCPCS: 00630; 64581; 64590; 95972; 72170; 76000; J7120; J2405

== ENCOUNTER 2020-07-07 05:30 | Day surgery (SDC) | payer MEDICARE, OTHER, SELFPAY ==
[2018-02-13 09:19] VITALS: BMI 26.7
[2020-06-23 06:14] VITALS: BMI 21.2
[2020-07-07] VITALS (7 sets, daily range): BP systolic 115–182; BP diastolic 54–97; PULSE 54–95; RESP 16; TEMP 36.5–36.7; O2SAT 96–100; BMI 23.1
[2020-07-07] MEDS: Lactated Ringers 1,000 ML 100 ML IV (06:21)
--- NOTE | 2020-07-07 07:25 | HP.PCM_ITS ---
HPI - General HPI Narrative Fredy MAN, is a 74 F who presents presents for stage II InterStim therapy implant. She had a stage I implant and a successful result with significant improvement in urinary symptoms and wants to proceed with final stage II implant. [facility] Medical History (Updated 06/23/20 @ 07:[address] Justino Moore MD) Anemia Back pain Bladder incontinence Bowel incontinence Depression Forgetfulness History of wrist fracture Hypertension Loose, teeth Non-smoker Post-menopausal Shortness of breath on exertion Wears glasses Home Medications Avonex 30 mcg IM FR 06/16/20 [History Last Taken Unknown] aspirin 325 mg PO Q6H PRN 06/16/20 [History Last Taken Unknown] ergocalciferol (vitamin D2) [Vitamin D2] 1,250 mcg PO FR 06/16/20 [History Last Taken Unknown] cephalexin [Keflex] 750 mg PO BID #10 cap 06/23/20 [Rx Last Taken Unknown] ibuprofen 600 mg PO Q8H PRN #20 tab 06/23/20 [Rx Last Taken Unknown] cephalexin [Keflex] 750 mg PO BID #10 cap 07/07/20 [Rx Last Taken Unknown] Allergy/AdvReac Type Severity Reaction Status Date / Time ciprofloxacin [From Cipro] Allergy Other Verified 07/07/20 06:14 erythromycin base Allergy Other Verified 07/07/20 06:14 shellfish derived AdvReac Nausea/Vom/ Verified 07/07/20 06:14 Diarrhea Surgical History Hx of colonoscopy Hx of foot surgery Social History (Updated 03/05/18 @ 12:54 by Weston MUNOZ, PA) Smoking Status: Never smoker ROS Constitutional Constitutional: Denies chills, fever(s) or malaise Eyes Eyes: Denies blurry vision or change in vision ENT HEENT: Reports none Cardiovascular Cardiovascular: Denies chest pain or palpitations Respiratory/Chest Respiratory/Chest: Denies cough or shortness of breath with exertion Gastrointestinal Gastrointestinal: Denies abdominal pain, constipation or diarrhea Musculoskeletal Musculoskeletal: Denies back pain, joint stiffness or joint swelling Integumentary Integumentary: Denies dry skin, jaundice, lesions or rash Neurologic Neurologic: Denies confusion, syncope or weakness Psychiatric Psychiatric: Reports none; Denies anxiety or depression Endocrine Endocrinology: Denies excessive sweating, fatigue or flushing Hematologic/Lymphatic Hematologic/Lymphatic: Denies anemia, easy bleeding or easy bruising Vital Signs Vital Signs Vital Signs: 07/07/20 06:15 Temperature 97.9 F Temperature Source Temporal Pulse Rate 54 L Respiratory Rate 16 Respiratory Pattern Normal Blood Pressure 182/97 H Blood Pressure Mean 125 Blood Pressure Source Monitor Blood Pressure Position Semi-Fowlers Blood Pressure Location Right Arm Pulse Ox 100 Oxygen Delivery Method Room Air Weight Weight: 50.2 kg Body Mass Index (BMI) 23.1 Physical Exam Const alert and oriented x3 General Appearance: cooperative HEENT normocephalic, head/scalp atraumatic, EAC's normal and TM's normal bilaterally Eyes PERRL and EOMs intact bilaterally Pupil: sluggish Neck no lymphadenopathy, supple and no JVD General: trachea midline Lymph Lymphatic: no lymphadenopathy noted, lymphedema and lymphadenopathy Resp normal respiratory effort, normal air movement and clear to auscultation bilaterally Cardio regular rate, regular rhythm and peripheral pulses 2+ throughout GI soft to palpation, non-tender and non-distended Extremity normal capillary refill and no clubbing, cyanosis or edema General Extremity: no tenderness to palpation of joints or extremities Skin no rashes or lesions noted General Skin Exam: turgor normal Lesions: no lesions Rashes: no rashes Neuro CN's II-XII intact bilaterally Speech: speech normal Motor Exam: strength 5/5 throughout; Negative for general weakness Psych thought process normal, cooperative and affect normal Appearance: appropriate Assessment & Plan Assessment/Plan (1) Bladder incontinence: PLAN: Plan to proceed with stage II implant.
--- NOTE | 2020-07-07 07:26 | PCM.DC ---
Discharge Instructions Diet Discharge Diet: No restrictions Activity Discharge Activity: May not drive while taking narcotic pain medications. (for 3 days.) May shower in (days): 1 Dressing / Incision Call your doctor if your incision/area has: Continuous Slow Oozing, Increased Pain/ Swelling, Increased Redness and Foul Smelling Discharge Call your doctor if you observe: Fever of 101 or Higher, Numbness or Tingling, Shortness of breath, Dizziness, Calf discomfort and Uncontrolled pain Cleanse incision/area with: Keep Dressing Clean & Dry Follow Up Care Please Follow Up With: Justino Moore MD When: Call [phone] for an appointment Test Results: Test results from this visit will be discussed in further detail at your follow-up appointment, if applicable. Discharge Plan Admission Primary Reason for Your Visit: interstim implant Attending Provider: Justino Moore Primary Care Provider: Arturo Erickson Discharge Orders/Prescriptions Prescriptions: New cephalexin [Keflex] 750 mg capsule 750 mg PO BID Qty: 10 RF: 0 Continued aspirin 325 mg Tablet 325 mg PO Q6H PRN (Reason: Pain) RF: 0 ergocalciferol (vitamin D2) [Vitamin D2] 1,250 mcg (50,000 unit) Capsule 1,250 mcg PO FR RF: 0 Avonex 30 mcg/0.5 mL Pen Injector Kit 30 mcg IM FR RF: 0 cephalexin [Keflex] 750 mg capsule 750 mg PO BID Qty: 10 RF: 0 ibuprofen 600 mg tablet 600 mg PO Q8H PRN (Reason: pain) Qty: 20 RF: 0 Referrals / Follow Up: Justino Moroe MD [STAFF PHYSICIAN] - Arturo Erickson MD [Primary Care Provider] - Disposition Discharge Orders: Discharge Patient (Routine); Ordered 07/07/20 Ordered By: Dr. Justino Moore
[2020-07-07] MEDS: Cefazolin 2 GM in 0.9% Normal Saline 100 ML IV (07:46)
[2020-07-07] MEDS: Lidocaine 1% (30 ml sdv) 30 ML Vial (07:46)
--- NOTE | 2020-07-07 08:04 | PCM.OPRPT ---
Report of Operation Date of Procedure: 07/07/20 Pre-Operative Diagnosis: Urge incontinence Post-Operative Diagnosis: Same Surgery/Procedure Performed:: InterStim therapy implant stage II Description of Surgical Findings:: Patient has completed stage I InterStim therapy implant with just the lead and the temporary extension. The patient now presents to the operating room for placement of stage II therapy. The patient's postop stage I therapy voiding diary was reviewed as well as the subjective results and the patient was satisfied with the results of stage I test InterStim therapy and wants to proceed with stage II implant of the generator. The patient understands these is no guarantees that in the future the InterStim therapy will keep working to the patient's satisfaction and its always possible and it may need to have a surgical revision, change in implant, possible revision or removal of implant. We also talk about the risks of pain with stimulation, bleeding and infection or any injury to nerves or bony structures and the tailbone area. After reviewing all this with the patient in the preoperative area she signed the consent form and we proceeded with stage II therapy implant. Patient was brought back to the operating room and placed supine on the table and then transferred to facedown the table. The old bandages from the stage I implant were removed and all the glue and tape was cleansed from the skin. I then placed a snap on the temporary extension coming from the exit site of the skin. I cut behind the snap to remove the old temporary extension. I then prepped and draped the temporary pocket site on the patient's side. I used 1% lidocaine to infiltrate the skin and made an incision to the old incision site. Once through the dermis layer then very carefully using a hemostat I spread down until I encountered the temporary extension lead off the stage I implant lead. The temporary suture was cut and removed. The temporary extension lead boot was then found and then using the screw in the kit I loosened the temporary boot off the permanent lead and removed the boot. After the boot from the permanent implant and then the boot was cut off the temporary extension and then under the drapes the staff pulled on the hemostat and removed the temporary lead completely. The permanent lead was then cleaned and inspected there was no signs of any damage. The generator that was brought onto the field. We cleaned the lead make sure there was no blood products or any fluid. We then advanced the lead into the connection to the generator until all the blue markings were shown and then using the screwdriver provided in the kit I secured the permanent lead to the generator. After 3 clicks of the screw. Then the pocket was extended to make a subcuticular pocket deep underneath the skin layer for the placement of the generator. The generator was placed with the [employer] facing up. Once the generator was in place and I placed the connection device over the generator and checked for impedance lead 0, 1, 2, 3 were checked for impedance all impedance were low and had good results. At this point I then closed the pocket in 2 layers the first layer was closed with 3-0 subcuticular Vicryl stitches and then the skin layer was closed with 4-0 Monocryl in a running fashion. I then placed Steri-Strips and dressings on the wound. A dressing was also placed in the midline puncture site from the first lead and the exit point. The patient's anesthetic was reversed and the patient was taken back to the PACU in good condition in the postoperative setting the [facility] rep underwent teaching and also set the device for proper stimulation. Patient will follow up for a postop check in a few weeks. Surgeon: Teresa Type of Anesthesia: General Drains: None Admit VTE Documentation VTE Present on Admission: No VTE Mechan Device Prophylaxis: SCD's
== END 2020-07-07 09:35 ==
LOC: SDC 05:31 → AC 05:32
PROVIDERS: PCP Family Medicine; Referring Provider Urology; Visit Provider Urology
PROC: (CPT 64581; principal; 2020-07-07 07:20)
DX: Z45.49 Encounter for adjustment and management of other implanted nervous system device (principal); N39.41 Urge incontinence; N32.81 Overactive bladder; Z86.2 Personal history of diseases of the blood and blood-forming organs and certain disorders involving the immune mechanism; Z78.0 Asymptomatic menopausal state; Z79.82 Long term (current) use of aspirin
CPT/HCPCS: 00630; 64581; 64590; 95972; J7120; C1767

== ENCOUNTER 2021-05-01 10:13 | Outpatient (CLI) | payer MEDICARE, OTHER, SELFPAY ==
[2021-05-01 12:20] LABS: Absolute Lymphocyte Count 1.99 X10^3/uL (0.83-4.51); Absolute Neutrophil Count 1.8 X10^3/uL (2.0-7.7); Basophil# 0.01 X10^3/uL; Basophil% 0.2 % (0-1); Eosinophil# 0.06 X10^3/uL; Eosinophils% 1.4 % (0-5); Hematocrit 38.7 % (37-47); Hemoglobin 12.8 g/dL (12.0-15.0); Lymphocyte # 1.99 X10^3/ul (0.83-4.51); Mean Corp Hgb Conc 33.1 g/dL (32-36); Mean Corpuscular Volume 96.8 fL (81-99); Mean Platelet Vol. 10.7 fl (6.2-12.0); Monocyte# 0.39 X10^3/uL; Monocyte% 9.2 % (0-10); NRBC Flagged by Analyzer 0 % (0-5); Neutrophil # 1.77 X10^3/uL (2.7-7.7); Platelet Count 167 K/mm3 (150-450); White Blood Count 4.2 K/mm3 (4.4-11.0)
[2021-05-01 12:37] LABS: Hemoglobin A1c 5.8 % (3.8-5.6)
[2021-05-01 12:51] LABS: Vitamin B12 347 pg/mL (211-911); Vitamin D,25 Hydroxy 32.2 ng/mL
[2021-05-01 12:55] LABS: AST(SGOT) 23 U/L (15-37); Alanine Aminotransfer ALT/SGPT 26 U/L (13-56); Albumin, Serum 3.8 g/dL (3.2-5.0); Alkaline Phosphatase 140 U/L (45-117); Anion Gap 4 (5-15); BUN 20 mg/dL (7-18); BUN/Creat Ratio 32.4 RATIO (10-20); Calcium,Total 9.9 mg/dL (8.5-10.1); Chloride 109 mmol/L (98-107); Creatinine, Serum 0.62 mg/dL (0.55-1.02); EST Glomerular Filtration Rate 101 mL/min (>60); Est Glom Filt Rate - Afr Amer 122 mL/min (>60); Globulin 3.7 g/dL (2.2-4.2); Glucose 133 mg/dL (74-106); Potassium 3.2 mmol/L (3.5-5.1); Protein, Total 7.5 g/dL (6.4-8.2); Sodium Level 143 mmol/L (136-145); Thyroid Stim Hormone (TSH) 1.09 uIU/mL (0.358-3.74)
== END 2021-05-01 23:59 | disposition home or self-care (01) ==
PROVIDERS: PCP Family Medicine; Referring Provider Family Medicine; Visit Provider Family Medicine
DX: R73.03 Prediabetes (principal); R41.3 Other amnesia; E55.9 Vitamin D deficiency, unspecified
CPT/HCPCS: 36415; 80053; 82306; 82607; 83036; 84443; 85025

== ENCOUNTER → 2021-07-12 | Outpatient (CLI) | payer MEDICARE, OTHER, SELFPAY ==
[2021-07-12 16:01] LABS: Anion Gap 5 (5-15); BUN 21 mg/dL (7-18); BUN/Creat Ratio 31.3 RATIO (10-20); Calcium,Total 9.8 mg/dL (8.5-10.1); Chloride 108 mmol/L (98-107); Creatinine, Serum 0.67 mg/dL (0.55-1.02); EST Glomerular Filtration Rate 92 mL/min (>60); Est Glom Filt Rate - Afr Amer 111 mL/min (>60); Glucose 181 mg/dL (74-106); Potassium 3.6 mmol/L (3.5-5.1); Sodium Level 143 mmol/L (136-145)
== END | disposition home or self-care (01) ==
LOC: MFPLAB 11:40
PROVIDERS: PCP Family Medicine; Visit Provider Family Medicine
DX: E87.1 Hypo-osmolality and hyponatremia (principal)
CPT/HCPCS: 36415; 80048

== ENCOUNTER → 2021-08-02 | Outpatient (CLI) | payer MEDICARE, OTHER, SELFPAY ==
[2021-08-02 15:21] LABS: Absolute Lymphocyte Count 2.42 X10^3/uL (0.83-4.51); Absolute Neutrophil Count 2.2 X10^3/uL (2.0-7.7); Basophil# 0.02 X10^3/uL; Basophil% 0.4 % (0-1); Eosinophil# 0.07 X10^3/uL; Eosinophils% 1.4 % (0-5); Hematocrit 40.3 % (37-47); Hemoglobin 12.8 g/dL (12.0-15.0); Lymphocyte # 2.42 X10^3/ul (0.83-4.51); Lymphocyte % 47.6 % (19-41); Mean Corp Hgb Conc 31.8 g/dL (32-36); Mean Corpuscular Hgb 31.3 pg (27.0-32.0); Mean Corpuscular Volume 98.5 fL (81-99); Monocyte# 0.38 X10^3/uL; Monocyte% 7.5 % (0-10); NRBC Flagged by Analyzer 0 % (0-5); Neutrophil # 2.18 X10^3/uL (2.7-7.7); Neutrophil % 42.9 % (47-70); Platelet Count 173 K/mm3 (150-450); RBC Distribution Width CV 12.6 % (11.6-14.6); RBC Distribution Width SD 45.4 fl (35.1-43.9); Red Blood Count 4.09 M/mm3 (4.2-5.4); White Blood Count 5.1 K/mm3 (4.4-11.0)
[2021-08-02 15:43] LABS: AST(SGOT) 17 U/L (15-37); Alanine Aminotransfer ALT/SGPT 20 U/L (13-56); Albumin, Serum 3.7 g/dL (3.2-5.0); Alkaline Phosphatase 150 U/L (45-117); Bilirubin, Direct 0.09 mg/dL (0.00-0.30); Protein, Total 7.7 g/dL (6.4-8.2)
== END | disposition home or self-care (01) ==
LOC: MFPLAB 11:55
PROVIDERS: PCP Family Medicine; Referring Provider Family Medicine; Visit Provider Psychiatry & Neurology Neurology
DX: G35 Multiple sclerosis (principal)
CPT/HCPCS: 36415; 80076; 85025

== ENCOUNTER → 2021-10-03 | Outpatient (CLI) | payer MEDICARE, OTHER, SELFPAY ==
[2021-10-03 10:48] LABS: Hemoglobin A1c 5.9 % (3.8-5.6)
[2021-10-03 10:59] LABS: Vitamin D,25 Hydroxy 31.9 ng/mL
[2021-10-03 11:07] LABS: ALB/GLOB Ratio 0.9 RATIO (0.9-2.4); AST(SGOT) 16 U/L (15-37); Alanine Aminotransfer ALT/SGPT 19 U/L (13-56); Albumin, Serum 3.6 g/dL (3.2-5.0); Alkaline Phosphatase 152 U/L (45-117); Anion Gap 4 (5-15); BUN 20 mg/dL (7-18); BUN/Creat Ratio 27.9 RATIO (10-20); Chloride 108 mmol/L (98-107); Creatinine, Serum 0.72 mg/dL (0.55-1.02); EST Glomerular Filtration Rate 85 mL/min (>60); Est Glom Filt Rate - Afr Amer 102 mL/min (>60); Globulin 4.1 g/dL (2.2-4.2); Glucose 199 mg/dL (74-106); Potassium 3.5 mmol/L (3.5-5.1); Protein, Total 7.7 g/dL (6.4-8.2); Sodium Level 141 mmol/L (136-145)
== END | disposition home or self-care (01) ==
LOC: MFPLAB 09:20
PROVIDERS: PCP Family Medicine; Referring Provider Family Medicine; Visit Provider Family Medicine
DX: R73.02 Impaired glucose tolerance (oral) (principal); E55.9 Vitamin D deficiency, unspecified
CPT/HCPCS: 36415; 80053; 82306; 83036